=== PATIENT | female | born 2000 | race Hispanic/Latino ===

== ENCOUNTER 2022-06-02 01:43 | Emergency (ER) | payer SELFPAY ==
[2022-06-02] MEDS ORDERED: Ondansetron ODT 4 MG TAB ONE (03:14)
== END 2022-06-02 03:17 | disposition home or self-care (01) ==
LOC: CSHERS 01:43
DX: F10.129 Alcohol abuse with intoxication, unspecified (principal); K29.20 Alcoholic gastritis without bleeding; R11.2 Nausea with vomiting, unspecified
CPT/HCPCS: 99283; Q0162

== ENCOUNTER 2022-08-26 22:58 | Emergency (ER) | payer OTHER ==
[2022-08-26] MEDS ORDERED: predniSONE 20 MG TAB ONE (23:25)
[2022-08-26] MEDS ORDERED: diphenhydrAMINE 25 MG CAP ONE (23:25)
== END 2022-08-26 23:29 | disposition home or self-care (01) ==
LOC: CSHERS 22:58
DX: L50.0 Allergic urticaria (principal)
CPT/HCPCS: 99282; J7512

== ENCOUNTER 2023-09-25 08:10 | Emergency (ER) | payer BC, OTHER, SELFPAY | END 2023-09-25 09:49 | disposition home or self-care (01) | LOC: CSHERS 08:10 | DX: T63.2X1A Toxic effect of venom of scorpion, accidental (unintentional), initial encounter (principal) | CPT/HCPCS: 99283 ==